=== PATIENT | male | born 1990 | race Caucasian/White ===

== ENCOUNTER 2022-09-23 08:36 | Outpatient (CLI) | payer SELFPAY ==
[2022-09-23 13:46] LABS: Cholesterol* 194 mg/dL (90-199); HDL Cholesterol* 35 mg/dL (>=40); LDL Cholesterol Calculated 87 mg/dL (<100); Triglycerides* 361 mg/dL (40-149)
== END 2022-09-23 08:37 | disposition home or self-care (01) ==
PROVIDERS: PCP Family Medicine; Visit Provider Family Medicine
DX: Z00.00 Encounter for general adult medical examination without abnormal findings (principal); I10 Essential (primary) hypertension; I49.9 Cardiac arrhythmia, unspecified; F41.9 Anxiety disorder, unspecified
CPT/HCPCS: 80061; 84443

== ENCOUNTER 2025-05-16 12:17 | Outpatient (CLI) | payer BC, SELFPAY | END 2025-05-16 12:18 | disposition home or self-care (01) | PROVIDERS: PCP Family Medicine; Visit Provider Family Medicine | DX: I10 Essential (primary) hypertension (principal); F41.9 Anxiety disorder, unspecified; I44.1 Atrioventricular block, second degree; R71.8 Other abnormality of red blood cells | CPT/HCPCS: 80053; 82728; 83540; 83550 ==